=== PATIENT | female | born 1935 | race Caucasian/White ===

== ENCOUNTER 2016-08-29 10:14 | Emergency (ER) | payer MEDICARE, OTHER | END 2016-08-29 12:53 | disposition home or self-care (01) | DX: R10.9 Unspecified abdominal pain (principal) ==

== ENCOUNTER 2016-09-30 21:25 | Emergency (ER) | payer MEDICARE, OTHER ==
[2016-09-30] MEDS ORDERED: SODIUM CHLORIDE 0.9% 1,000 ML IV ONE ×2 (21:44)
== END 2016-10-01 00:51 | disposition home or self-care (01) ==
DX: E86.0 Dehydration (principal); E87.1 Hypo-osmolality and hyponatremia; R53.1 Weakness; R50.9 Fever, unspecified; C25.9 Malignant neoplasm of pancreas, unspecified